=== PATIENT | male | born 1985 | race Caucasian/White ===

== ENCOUNTER 2022-07-03 17:34 | Emergency (ER) | payer MEDICARE, MEDICAID ==
[~2022-07-03] VITALS: Ht 177.8 cm; Wt 79.5 kg
[2022-07-03 19:21] LABS: Basophils # (auto) 0.1 10 ^3/uL (0-0.2); Basophils % (auto) 1.2 % (0.0-2.0); Eosinophils # (auto) 0 10 ^3/uL (0-0.8); Eosinophils % (auto) 0.4 % (0.0-7.0); Hematocrit 47.9 % (41.0-53.0); Hemoglobin 15.8 g/dL (13.5-17.5); Lymphocytes # (auto) 0.7 10 ^3/uL (0.4-5.4); Lymphocytes % (auto) 8.9 % (10.0-50.0); Mean Corpuscular Hemoglobin 26.3 pg (28.0-32.0); Mean Corpuscular Hgb Conc. 32.9 g/dL (32.0-36.0); Mean Corpuscular Volume 79.9 fL (80.0-100.0); Monocytes # (auto) 0.7 10 ^3/uL (0-1.3); Monocytes % (auto) 9.3 % (0.0-12.0); Neutrophils # (auto) 6.4 10 ^3/uL (1.6-8.6); Neutrophils % (auto) 80.2 % (37.0-80.0); Red Blood Cells 5.99 10^6/uL (4.5-5.90); Red Cell Distribution Width 15.6 % (11.8-14.3)
[2022-07-03 19:38] LABS: Salicylate < 1.7 mg/dL (2.8-20.0)
[2022-07-03 19:40] LABS: Albumin 4.2 g/dL (3.4-5.0); Anion Gap 7 (5-15); Blood Alcohol < 3.0 mg/dL (0-5); Blood Urea Nitrogen 10 mg/dL (7-18); Calcium 9.5 mg/dL (8.5-10.1); Carbon Dioxide 26 mmol/L (21-32); Chloride 108 mmol/L (98-107); Glucose 100 mg/dL (74-106); Magnesium 2.2 mg/dL (1.6-2.6); Potassium 3.7 mmol/L (3.5-5.1); Sodium 141 mmol/L (136-145)
[2022-07-03 19:50] LABS: Alanine Aminotransferase 24 U/L (16-61); Alkaline Phosphatase 81 U/L (45-117); Aspartate Aminotransferase 16 U/L (15-37); BUN/Creatinine Ratio 8.4; Bilirubin, Total 0.7 mg/dL (0.2-1.0); GFR African American 89 mL/min; GFR Non-African American 74 mL/min; Phosphorus 2.8 mg/dL (2.5-4.90); Total Protein 7.3 g/dL (6.4-8.2)
[2022-07-03 19:52] LABS: Acetaminophen < 2.0 ug/mL (10-30)
[2022-07-03] MEDS ORDERED: FLUD0.1T2 PO (21:18)
[2022-07-03] MEDS ORDERED: HYDR-4924 PO (21:31)
[2022-07-03] MEDS ORDERED: PANT40TA2 PO (21:34)
[2022-07-03] MEDS ORDERED: TACR1TAB4 PO (21:35)
[2022-07-03] MEDS ORDERED: FERR325T20 PO (21:36)
[2022-07-03] MEDS ORDERED: CHOL20007 OR (21:37)
[2022-07-03] MEDS ORDERED: ESCI-28 PO (21:40)
[2022-07-03] MEDS ORDERED: ASPI-543 PO (21:41)
[2022-07-03] MEDS ORDERED: SIRO1TAB4 PO (21:43)
[2022-07-03] MEDS ORDERED: PRAV20TA3 PO (21:45)
[2022-07-03] MEDS ORDERED: ZONI100C43 PO (21:56)
[2022-07-03] MEDS ORDERED: MYCO360T PO (21:59)
[2022-07-03] MEDS ORDERED: AZEL0.1S EACHNOSTRI (22:01)
[2022-07-04] MEDS ORDERED: CHOL20007 OR (08:27)
[2022-07-04] MEDS ORDERED: FERROUS SULFATE 325mg EC TAB PO ONE (10:00)
[2022-07-04] MEDS ORDERED: PANTOPRAZOLE 40 MG TAB PO ONE (10:00)
[2022-07-04] MEDS ORDERED: CHOLECALCIFEROL (VITD3) 2,000 UNIT CAP/TAB PO ONE (10:00)
[2022-07-04] MEDS ORDERED: FLUDROCORTISONE ACETATE 0.1 MG TAB PO ONE (10:00)
[2022-07-04] MEDS ORDERED: TACROLIMUS 0.5 MG CAP PO SCH (10:00)
[2022-07-04] MEDS ORDERED: ASPirin 81 mg TAB PO ONE (10:00)
[2022-07-04] MEDS ORDERED: TACROLIMUS 0.75 MG PO SCH (10:45)
[2022-07-04] MEDS ORDERED: LORazepam 0.5 MG TAB PO ONE (10:45)
[2022-07-04] MEDS: TACROLIMUS 0.75 MG PO SCH (10:47)
[2022-07-04] MEDS: ZONISAMIDE 100MG CAPSULE PO SCH (11:30)
[2022-07-04] MEDS ORDERED: KETAMINE HCL 10 ML ONE (20:05)
[2022-07-04] MEDS ORDERED: KETAMINE 50mg/ML 10ml Vial (500mg/10ml) IM ONE (20:15)
[2022-07-04] MEDS ORDERED: HALOPERIDOL LACTATE 5 MG/ML INJ VIAL IM ONE (21:45)
[2022-07-04] MEDS ORDERED: PRAVASTATIN SODIUM 20 MG TAB PO ONE (22:00)
[2022-07-05] MEDS: TACROLIMUS 0.75 MG PO SCH (10:15)
[2022-07-05] MEDS: ZONISAMIDE 100MG CAPSULE PO SCH (10:15)
[2022-07-05 20:05] VITALS: BP 115/70
== END 2022-07-05 20:46 | disposition short-term general hospital (02) ==
LOC: EDBD 17:34 → EEVIPCON 17:34 → ER 17:34
DX: R45.851 Suicidal ideations (principal); F32.9 Major depressive disorder, single episode, unspecified; Z79.82 Long term (current) use of aspirin; Z79.899 Other long term (current) drug therapy
CPT/HCPCS: 36415; 71045; 80053; 80320; 80329; 83735; 84100; 84443; 84484; 85025; 93005; 96372; 99285; J1630